=== PATIENT | female | born 1945 | race Caucasian/White ===

== ENCOUNTER 2020-01-10 07:51 | Emergency (ER) | payer MEDICARE, SELFPAY ==
--- NOTE | ~2020-01-10 | CT_ITS ---
EXAMINATION: CT soft tissue neck w con EXAM DATE: 01/10/2020 09:26 INDICATION: Neck and tongue swelling, right lower jaw pain. Toi's angina, suspect right-sided dent al abscess. TECHNIQUE: Spiral CT of the neck was performed following intravenous injection of 75 mL Omnipaque 350 . Axial, coronal and sagittal images were reviewed. The dose-length product (DLP) for this examinat ion was 563.39 mGy-cm. The exposure was tailored according to patient size (auto mA exposure control ), and iterative reconstruction (ASIR) was used as additional dose reduction technique. There is no prior study for comparison. FINDINGS: There is mild fat stranding, edema along the chin and sublingual subcutaneous fat. There is no drainable abscess identified. The thyroid gland is unremarkable. The submandibular and parotid glands are symmetric. There is no cervical lymphadenopathy. There are no masses identified. Th e superior mediastinum is unremarkable. The airway is unremarkable. Parapharyngeal and pre-glotti c fat planes are preserved. The opacified vasculature is patent. Carotid arteries have a medial cou rse and are without stenosis. There are surgical changes of both lobes. Visualized sinuses and mast oid air cells are well aerated. Lung apices unremarkable. There is cervical spondylosis. IMPRESSION: Subcutaneous fat stranding. No drainable abscess. Reviewed, dictated and finalized at location A.
[2020-01-10 08:00] VITALS: BP 136/81; PULSE 110; RESP 20; TEMP 36.8; O2SAT 96
--- NOTE | 2020-01-10 08:16 | ED.DENTAL ---
HPI - Dental/Oral General Chief complaint: Dental/Oral Stated complaint: Allergic Reaction Time Seen by Provider: 01/10/20 08:08 Source: patient and family Mode of arrival: ambulatory Limitations: no limitations History of Present Illness HPI Narrative: Patient is a 74-year-old female with a history of diabetes, hypertension who presents for evaluation of tongue swelling. Patient reports being recently diagnosed with a dental abscess about tooth 28, states she was placed on amoxicillin by her dentist yesterday, but awakened this morning with tongue protrusion, difficulty opening her mouth. Patient denies fever, she does report right-sided neck swelling and fullness. Patient denies shortness of breath, no trouble swallowing. No nausea or vomiting. Patient denies sore throat. She does report dull, aching neck pain especially on the right side of her neck. Related Data Home Medications Medication Instructions Recorded Confirmed atorvastatin 01/10/20 escitalopram oxalate mg 01/10/20 losartan 01/10/20 metformin mg 01/10/20 Allergies Allergy/AdvReac Type Severity Reaction Status Date / Time indomethacin [From Indocin] Allergy Palpitation Verified 01/10/20 08:03 s Review of Systems Review of Systems: Narrative: CONSTITUTIONAL: Denies fever CARDIOVASCULAR: Denies chest pain HEENT: Denies congestion, reports swelling of tongue RESPIRATORY: Denies cough or dyspnea. GASTROINTESTINAL: Denies abdominal pain SKIN: Denies rash MUSCULOSKELETAL: Denies back pain NEUROLOGIC: Denies headache [facility] Past Medical History Medical History Anxiety Diabetes Hypertension Social History Social History (Updated 01/10/20 @ 08:33 by Ysabel Alvarez MD) Smoking status: Never smoker Alcohol intake: unknown Substance use: never Gender identity (if verbalized by the patient): Female Exam Narrative: Exam Narrative: GENERAL: Awake, alert, conversant HEAD: Normocephalic, atraumatic. EYES: PERRLA and EOMI. ENT: Nares clear, no rhinorrhea or epistaxis. Tongue is elevated in the palate. There is upward displacement of the tongue. There is mild trismus. There is edema without erythema of the right submandibular area. CHEST: No respiratory distress, breathing even and non labored HEART: Tachycardic rate, sinus rhythm ABDOMEN:Non distended, non tender EXTREMITIES: Normal range of motion. No edema. SKIN: Warm, dry, no rash. NEURO:No focal deficits. Alert and oriented x3 Course Vital Signs Vital signs: Vital Signs Temperature 36.8 C 01/10/20 08:00 Pulse Rate 110 H 01/10/20 08:00 Respiratory Rate 20 01/10/20 08:00 Blood Pressure 136/81 01/10/20 08:00 Pulse Oximetry 96 01/10/20 08:00 Temperature 36.8 C 01/10/20 11:04 Pulse Rate 84 01/10/20 11:04 Respiratory Rate 16 01/10/20 11:04 Blood Pressure 141/69 H 01/10/20 11:04 Pulse Oximetry 96 01/10/20 11:04 Transfer Transfered to: [facility] Transportation: ALS Transfer rationale: Specialty unavailable (ENT) Accepting physician: MD Pito Transfer comments: Transferred in stable condition MDM - Dental/Oral MDM Narrative Medical decision making narrative: Patient is a 74-year-old with a recent history of dental abscess who presented for tongue protrusion, concern for possible allergic reaction in the setting of recently taking amoxicillin for the abscess. At the time of assessment, ABCs are intact and vital signs are stable. Patient is protecting her airway. She does have elevation of the tongue and the lower palate, with tongue protrusion. There is trismus. Patient does have some neck edema without erythema or warmth of the right submandibular area. I was very concerned for Toi's angina given the recent history although the patient is hemodynamically stable, nontoxic-appearing. IV access is obtained and labs are drawn. Given patient with no acute airway compromise
[2020-01-10] MEDS: SODIUM CHLORIDE 0.9% IV 1,000 ML 999 ML IV CONT (08:35)
[2020-01-10] MEDS: CLINDAMYCIN 600 MG/NS 50 ML 600 MG/50 ML PIGGYBACK 100 MG IVPB (08:47)
[2020-01-10 08:59] LABS: Basophils Percent Auto 0.2 % (0.2-1.2); Eosinophils Absolute Auto 0.1 K/mm3 (0-0.3); Eosinophils Percent Auto 0.4 % (0-4.4); Hematocrit 41.5 % (37.0-47.0); Hemoglobin 13.9 g/dL (12.0-15.0); Immature Granulocyte Absolute 0.04 K/mm3 (0.00-0.031); Immature Granulocyte Percent A 0.3 % (0-0.5); Lymphocytes Absolute Auto 1.85 K/mm3 (0.9-3.2); Lymphocytes Percent Auto 15.6 % (18.3-44.2); Mean Corpuscular HGB Conc 33.5 g/dl (32-36); Mean Corpuscular Hemoglobin 30.4 pg (26-34); Mean Corpuscular Volume 90.8 fl (80-100); Mean Platelet Volume 10.1 fl (7.4-10.4); Monocytes Absolute Auto 1.2 K/mm3 (0.1-0.6); Monocytes Percent Auto 10.1 % (2.6-8.5); Neutrophils Absolute Auto 8.7 K/mm3 (1.3-6.7); Neutrophils Percent Auto 73.4 % (45.5-73.1); Platelet Count Result 265 k/mm3 (150-375); Red Blood Count 4.57 M/mm3 (4.2-5.4); Red Cell Distribution Width 13.2 % (11.5-14.5); White Blood Count 11.9 K/mm3 (4.5-10.0)
[2020-01-10 09:11] LABS: Lactic Acid Reflex 1.2 mmol/L (0.7-2.1); Prothrombin Time 12.8 Seconds (11.1-14.7)
[2020-01-10 09:14] LABS: Alanine Aminotransferase 26 U/L (4-35); Albumin Level 4.1 g/dL (3.5-5.1); Alkaline Phosphatase 89 U/L (38-126); Aspartate Amino Transferase 25 U/L (14-36); Bilirubin,Total 1.4 mg/dL (0.2-1.3); Blood Urea Nitrogen 15 mg/dL (7-17); CRP 4.2 mg/dL (<1.0); Calcium 8.8 mg/dL (8.4-10.2); Carbon Dioxide 27 mmol/L (22-30); Chloride 100 mmol/L (98-107); Estimated CRCL calculation 68 ml/min; Estimated Glomerular Filt Rate > 60; Glucose 156 mg/dL (65-105); Potassium 4.1 mmol/L (3.4-5.0); Sodium 134 mmol/L (137-145)
[2020-01-10 09:16] LABS: Estimated CRCL calculation 59 ml/min; Estimated Glomerular Filt Rate > 60
[2020-01-10 09:20] LABS: Partial Thromboplastin Time 26.7 SECONDS (22.3-36.8)
[2020-01-10 11:04] VITALS: BP 141/69; PULSE 84; RESP 16; TEMP 36.8; O2SAT 96
--- NOTE | 2020-01-10 13:35 | PC.NURSE ---
[facility] [place] [facility] Condition stable.
== END 2020-01-10 13:35 | disposition short-term general hospital (02) ==
PROVIDERS: Emergency Provider Emergency Medicine
DX: L03.221 Cellulitis of neck (principal); F41.9 Anxiety disorder, unspecified; E11.9 Type 2 diabetes mellitus without complications; I10 Essential (primary) hypertension; R22.1 Localized swelling, mass and lump, neck
CPT/HCPCS: 36415; 70491; 80053; 83605; 85025; 85610; 85730; 86140; 87040; 96365; 96375; 99285; J0131; J7030; Q9967